=== PATIENT | male | born 1955 | race Caucasian/White ===

== ENCOUNTER 2022-05-07 21:40 | Inpatient (IN) | payer OTHER ==
[2022-05-07 22:01] VITALS: BMI 20.3
[2022-05-07] MEDS ORDERED: methylPREDNISolone NA SUCC 125 MG/2 ML VIAL IVPUSH ONE (22:19)
[2022-05-07] MEDS ORDERED: ALBUTEROL SO4 2.5/IPRATROPIUM 0.5 INH SOL 3 ML VIAL.NEB. NEB ONE (22:44)
[2022-05-07] MEDS: ALBUTEROL SO4 2.5/IPRATROPIUM 0.5 INH SOL 3 ML VIAL.NEB. NEB SCH ×3 (22:48→23:17)
[2022-05-07] MEDS ORDERED: methylPREDNISolone NA SUCC 125 MG/2 ML VIAL ONE (22:55)
[2022-05-07 23:27] LABS: BASO % 0.6 % (0-2.0); EOS % 0.1 % (0-4.5); HEMOGLOBIN 13.2 GM/dL (11.7-16.9); LYMPH % 8.5 % (8-40); MCH 28.1 pg (25.7-33.7); MEAN PLT VOLUME 7.7 fl (7.5-11.1); MONO % 10.1 % (3.8-10.2); NEUT % 80.7 % (42.8-82.8); PLATELET COUNT 316 10^3/uL (134-434); RBC 4.71 M/mm3 (4.00-5.60); RDW 19.2 % (11.9-15.9); VENOUS BASE EXCESS 5.2 mmol/L (-2-2); VENOUS PCO2 61.9 mmHg (38-52); VENOUS PH 7.343 (7.310-7.410); WHITE BLOOD COUNT 4.6 K/mm3 (4.0-10.0)
[2022-05-07 23:37] LABS: INR 1.07 (0.83-1.09); PROTHROMBIN TIME (PATIENT) 12.3 SEC (9.7-13.0)
[2022-05-07] MEDS ORDERED: ACETAMINOPHEN 1000 MG/100 ML BAG IVPB ONE (23:39)
[2022-05-07 23:40] LABS: ACTIVATED PTT 37.7 SECONDS (25.2-36.5)
[2022-05-07] MEDS ORDERED: ACETAMINOPHEN INJECTION 100 ML IVPB ONE (23:40)
[2022-05-08 00:04] LABS: ALBUMIN 3.4 g/dl (3.4-5.0); CALCIUM 8.8 mg/dL (8.5-10.1); MAGNESIUM 2.5 mg/dL (1.8-2.4)
[2022-05-08 00:07] LABS: CREATININE 0.9 mg/dL (0.55-1.3)
[2022-05-08 00:09] LABS: TOT PROT 6.8 g/dl (6.4-8.2)
[2022-05-08 00:21] LABS: N-TERMINAL BNP 323.1 pg/ml (5-125)
[2022-05-08 00:25] LABS: BLOOD UREA NITROGEN 20.5 mg/dL (7-18)
[2022-05-08 00:32] LABS: BILIRUBIN,TOTAL 0.4 mg/dL (0.2-1)
[2022-05-08] MEDS ORDERED: amLODIPine BESYLATE 5 MG TABLET (FP) PO SCH ×2 (03:49→10:00)
[2022-05-08] MEDS ORDERED: REMDESIVIR 200 MG in SODIUM CHLORIDE 250 ML IVPB ONE (03:51)
[2022-05-08] MEDS ORDERED: MELATONIN 5 MG TABLETS PO ONE (05:04)
[2022-05-08] MEDS ORDERED: MELATONIN 5 MG TABLETS ONE (05:33)
[2022-05-08 05:48] LABS: PH,URINE 6.5 (5.0-8.0); URINE APPEARANCE CLEAR; URINE BILIRUBIN NEGATIVE (NEGATIVE); URINE COLOR YELLOW; URINE GLUCOSE (UA) TRACE (NEGATIVE); URINE KETONE TRACE (NEGATIVE); URINE LEUK ESTERASE NEGATIVE (NEGATIVE); URINE NITRITE NEGATIVE (NEGATIVE); URINE PROTEIN TRACE (NEGATIVE); URINE UROBILINOGEN 0.2 mg/dL (0.2-1.0)
[2022-05-08] MEDS ORDERED: ALBUTEROL SO4 HFA INHALER IH PRN ×2 (06:22→11:41)
[2022-05-08 07:37] LABS: BASO % 0.6 % (0-2.0); HEMATOCRIT 41.9 % (35.4-49); HEMOGLOBIN 13.9 GM/dL (11.7-16.9); MCHC 33.2 g/dl (32.0-35.9); MEAN CELL VOLUME 84.3 fl (80-96); MEAN PLT VOLUME 7.9 fl (7.5-11.1); MONO % 2.8 % (3.8-10.2); NEUT % 85.6 % (42.8-82.8); PLATELET COUNT 325 10^3/uL (134-434); RBC 4.97 M/mm3 (4.00-5.60); RDW 18.8 % (11.9-15.9); WHITE BLOOD COUNT 2.8 K/mm3 (4.0-10.0)
[2022-05-08 07:56] LABS: CALCIUM 8.9 mg/dL (8.5-10.1)
[2022-05-08 07:57] LABS: ALBUMIN 3.5 g/dl (3.4-5.0); BLOOD UREA NITROGEN 15.8 mg/dL (7-18); MAGNESIUM 2.2 mg/dL (1.8-2.4)
[2022-05-08 08:00] LABS: CREATININE 0.7 mg/dL (0.55-1.3); PHOSPHOROUS 3.3 mg/dL (2.5-4.9)
[2022-05-08 08:02] LABS: BILIRUBIN,TOTAL 0.7 mg/dL (0.2-1); TOT PROT 7.1 g/dl (6.4-8.2)
[2022-05-08] MEDS ORDERED: DEXAMETHASONE 4 MG TABLET (FP) ONE (09:16)
[2022-05-08] MEDS ORDERED: ENOXAPARIN NA (PORCINE) 40 MG/0.4 ML DISP.SYRIN SQ ONE (09:16)
[2022-05-08] MEDS ORDERED: amLODIPine BESYLATE 5 MG TABLET (FP) ONE ×2 (09:16→21:01)
[2022-05-08 09:20] LABS: ERYTHROCYTE SEDIMENTATION RATE 9 mm/hr (0-20)
[2022-05-08] MEDS: DEXAMETHASONE 4 MG TABLET (FP) PO SCH (09:25)
[2022-05-08] MEDS: ENOXAPARIN NA (PORCINE) 40 MG/0.4 ML DISP.SYRIN SQ SCH (09:25)
[2022-05-08] MEDS ORDERED: methaDONE HCL 10 MG TABLET PO SCH (11:45)
[2022-05-08] MEDS ORDERED: methaDONE HCL 40 MG DISPERSABLE TABLET ONE (12:28)
[2022-05-08] MEDS ORDERED: methaDONE HCL 10 MG TABLET ONE (12:29)
[2022-05-08] MEDS: methaDONE 40 MG, methaDONE 10 MG PO SCH (12:34)
[2022-05-08] MEDS ORDERED: LISINOPRIL 20 MG TABLET ONE (12:35)
[2022-05-08] MEDS: LISINOPRIL 20 MG TABLET PO SCH (12:42)
[2022-05-08 16:38] LABS: URINE BARBITURATES NEGATIVE (NEGATIVE)
[2022-05-08 16:40] LABS: PHENCYCLIDINE,URINE NEGATIVE (NEGATIVE); URINE AMPHETAMINES NEGATIVE (NEGATIVE)
[2022-05-08 16:46] LABS: COCAINE, UR NEGATIVE (NEGATIVE)
[2022-05-08 16:59] LABS: METHADONE, UR POSITIVE (NEGATIVE); OPIATES, URI POSITIVE (NEGATIVE); URINE BENZODIAZEPINES NEGATIVE (NEGATIVE)
[2022-05-08] MEDS ORDERED: amLODIPine BESYLATE 5 MG TABLET (FP) PO ONE (18:48)
[2022-05-08] MEDS ORDERED: amLODIPine BESYLATE 10 MG TABLET (FP) PO ONE (18:48)
[2022-05-08] MEDS ORDERED: ROSUVASTATIN CA 20 MG TABLET ONE (21:01)
[2022-05-08] MEDS ORDERED: MONTELUKAST NA 10 MG TABLET ONE (21:01)
[2022-05-08] MEDS: MONTELUKAST NA 10 MG TABLET PO SCH (21:03)
[2022-05-08] MEDS ORDERED: ROSUVASTATIN CA 10 MG TABLET PO SCH (22:00)
[2022-05-08] MEDS ORDERED: MAG HYDROX/AL HYDROX/SIMETH 30 ML UNIT-DOSE CUP PO ONE (22:41)
[2022-05-08] MEDS ORDERED: MAG HYDROX/AL HYDROX/SIMETH 30 ML UNIT-DOSE CUP ONE (22:47)
[2022-05-09] MEDS ORDERED: methaDONE HCL 10 MG TABLET ONE (08:49)
[2022-05-09] MEDS ORDERED: HYDROCHLOROTHIAZIDE 25 MG TABLET (FP) ONE (08:49)
[2022-05-09] MEDS ORDERED: ASPIRIN 81 MG CHEWABLE TABLETS ONE (08:50)
[2022-05-09] MEDS ORDERED: ENOXAPARIN NA (PORCINE) 40 MG/0.4 ML DISP.SYRIN SQ ONE (08:50)
[2022-05-09] MEDS ORDERED: MULTIVITAMINS (DAILY MVI) TABLET (FP) ONE (08:50)
[2022-05-09] MEDS ORDERED: DEXAMETHASONE 4 MG TABLET (FP) ONE (08:50)
[2022-05-09] MEDS ORDERED: LISINOPRIL 20 MG TABLET ONE (08:50)
[2022-05-09] MEDS ORDERED: amLODIPine BESYLATE 10 MG TABLET (FP) ONE (08:50)
[2022-05-09] MEDS ORDERED: SERTRALINE HCL 50 MG TABLET (FP) ONE (08:50)
[2022-05-09] MEDS: DEXAMETHASONE 4 MG TABLET (FP) PO SCH (09:10)
[2022-05-09] MEDS: methaDONE 40 MG, methaDONE 10 MG PO SCH (09:10)
[2022-05-09] MEDS: ASPIRIN 81 MG CHEWABLE TABLETS PO SCH (09:10)
[2022-05-09] MEDS: amLODIPine BESYLATE 10 MG TABLET (FP) PO SCH (09:11)
[2022-05-09] MEDS: MULTIVITAMINS (DAILY MVI) TABLET (FP) PO SCH (09:11)
[2022-05-09] MEDS: LISINOPRIL 20 MG TABLET PO SCH (09:11)
[2022-05-09] MEDS: ENOXAPARIN NA (PORCINE) 40 MG/0.4 ML DISP.SYRIN SQ SCH (09:11)
[2022-05-09] MEDS: SERTRALINE HCL 50 MG TABLET (FP) PO SCH (09:11)
[2022-05-09] MEDS: HYDROCHLOROTHIAZIDE 12.5 MG CAPSULE (FP) PO SCH (09:11)
[2022-05-09] MEDS ORDERED: ALBUTEROL SO4 2.5/IPRATROPIUM 0.5 INH SOL 3 ML VIAL.NEB. NEB ONE (09:43)
[2022-05-09 18:45] LABS: BASO % 0.3 % (0-2.0); HEMATOCRIT 49.7 % (35.4-49); HEMOGLOBIN 16.4 GM/dL (11.7-16.9); LYMPH % 18.6 % (8-40); MCH 27.7 pg (25.7-33.7); MCHC 32.9 g/dl (32.0-35.9); MEAN PLT VOLUME 8.1 fl (7.5-11.1); MONO % 5.3 % (3.8-10.2); NEUT % 75.8 % (42.8-82.8); PLATELET COUNT 388 10^3/uL (134-434); RBC 5.91 M/mm3 (4.00-5.60); WHITE BLOOD COUNT 5.8 K/mm3 (4.0-10.0)
[2022-05-09 19:06] LABS: BLOOD UREA NITROGEN 39.2 mg/dL (7-18); MAGNESIUM 2.5 mg/dL (1.8-2.4)
[2022-05-09 19:09] LABS: PHOSPHOROUS 4.8 mg/dL (2.5-4.9)
[2022-05-09] MEDS: MONTELUKAST NA 10 MG TABLET PO SCH (22:22)
[2022-05-10] MEDS ORDERED: methaDONE HCL 10 MG TABLET ONE (05:54)
[2022-05-10] MEDS ORDERED: methaDONE HCL 40 MG DISPERSABLE TABLET ONE (05:54)
[2022-05-10] MEDS: methaDONE 40 MG, methaDONE 10 MG PO SCH (05:59)
[2022-05-10] MEDS: amLODIPine BESYLATE 10 MG TABLET (FP) PO SCH (09:46)
[2022-05-10] MEDS: SERTRALINE HCL 50 MG TABLET (FP) PO SCH (09:46)
[2022-05-10] MEDS: ASPIRIN 81 MG CHEWABLE TABLETS PO SCH (09:46)
[2022-05-10] MEDS: DEXAMETHASONE 4 MG TABLET (FP) PO SCH (09:46)
[2022-05-10] MEDS: MULTIVITAMINS (DAILY MVI) TABLET (FP) PO SCH (09:46)
[2022-05-10] MEDS: LISINOPRIL 20 MG TABLET PO SCH (09:46)
[2022-05-10] MEDS: HYDROCHLOROTHIAZIDE 12.5 MG CAPSULE (FP) PO SCH (09:46)
[2022-05-10] MEDS: ENOXAPARIN NA (PORCINE) 40 MG/0.4 ML DISP.SYRIN SQ SCH (10:01)
[2022-05-10 10:30] LABS: BASO % 0.6 % (0-2.0); EOS % 0.1 % (0-4.5); HEMATOCRIT 48.6 % (35.4-49); HEMOGLOBIN 16.1 GM/dL (11.7-16.9); MCH 27.9 pg (25.7-33.7); MCHC 33.2 g/dl (32.0-35.9); MEAN CELL VOLUME 84.1 fl (80-96); MONO % 11.7 % (3.8-10.2); NEUT % 64.6 % (42.8-82.8); PLATELET COUNT 359 10^3/uL (134-434); RBC 5.78 M/mm3 (4.00-5.60); RDW 19.3 % (11.9-15.9)
[2022-05-10 11:01] LABS: CALCIUM 8.5 mg/dL (8.5-10.1)
[2022-05-10 11:02] LABS: MAGNESIUM 2.7 mg/dL (1.8-2.4)
[2022-05-10 11:05] LABS: CREATININE 1.2 mg/dL (0.55-1.3); PHOSPHOROUS 4.4 mg/dL (2.5-4.9)
[2022-05-10] MEDS ORDERED: REMDESIVIR 200 MG in SODIUM CHLORIDE 250 ML IVPB ONE (14:30)
[2022-05-10] MEDS: hydrOXYzine PAMOATE 50 MG CAPSULE (FP) PO PRN (21:56)
[2022-05-10] MEDS: MONTELUKAST NA 10 MG TABLET PO SCH (21:56)
[2022-05-11] MEDS ORDERED: methaDONE HCL 40 MG DISPERSABLE TABLET ONE (05:49)
[2022-05-11] MEDS ORDERED: methaDONE HCL 10 MG TABLET ONE (05:50)
[2022-05-11] MEDS: methaDONE 40 MG, methaDONE 10 MG PO SCH (05:57)
[2022-05-11] MEDS: HYDROCHLOROTHIAZIDE 12.5 MG CAPSULE (FP) PO SCH (11:27)
[2022-05-11] MEDS: ASPIRIN 81 MG CHEWABLE TABLETS PO SCH (11:27)
[2022-05-11] MEDS: ENOXAPARIN NA (PORCINE) 40 MG/0.4 ML DISP.SYRIN SQ SCH (11:28)
[2022-05-11] MEDS: amLODIPine BESYLATE 10 MG TABLET (FP) PO SCH (11:28)
[2022-05-11] MEDS: MULTIVITAMINS (DAILY MVI) TABLET (FP) PO SCH (11:28)
[2022-05-11] MEDS: LISINOPRIL 20 MG TABLET PO SCH (11:28)
[2022-05-11] MEDS: SERTRALINE HCL 50 MG TABLET (FP) PO SCH (11:28)
[2022-05-11] MEDS: DEXAMETHASONE SOD PHOSPHATE 4 MG/1 ML VIAL IVPUSH SCH (13:03)
[2022-05-11] MEDS: REMDESIVIR 100 MG in SODIUM CHLORIDE 250 ML IVPB SCH (14:05)
[2022-05-11] MEDS: NICOTINE 14 MG/24 HOURS TOPICAL PATCH TD SCH (16:39)
[2022-05-11] MEDS: hydrOXYzine PAMOATE 50 MG CAPSULE (FP) PO PRN (22:10)
[2022-05-11] MEDS: MONTELUKAST NA 10 MG TABLET PO SCH (22:10)
[2022-05-12] MEDS ORDERED: methaDONE HCL 10 MG TABLET ONE (06:02)
[2022-05-12] MEDS ORDERED: methaDONE HCL 40 MG DISPERSABLE TABLET ONE (06:02)
[2022-05-12] MEDS: methaDONE 40 MG, methaDONE 10 MG PO SCH (06:17)
[2022-05-12] MEDS: LISINOPRIL 20 MG TABLET PO SCH (09:50)
[2022-05-12] MEDS: MULTIVITAMINS (DAILY MVI) TABLET (FP) PO SCH (09:50)
[2022-05-12] MEDS: amLODIPine BESYLATE 10 MG TABLET (FP) PO SCH (09:50)
[2022-05-12] MEDS: ASPIRIN 81 MG CHEWABLE TABLETS PO SCH (09:50)
[2022-05-12] MEDS: ENOXAPARIN NA (PORCINE) 40 MG/0.4 ML DISP.SYRIN SQ SCH (09:51)
[2022-05-12] MEDS: SERTRALINE HCL 50 MG TABLET (FP) PO SCH (09:51)
[2022-05-12] MEDS: hydrOXYzine PAMOATE 50 MG CAPSULE (FP) PO PRN (09:51)
[2022-05-12] MEDS: HYDROCHLOROTHIAZIDE 12.5 MG CAPSULE (FP) PO SCH (09:51)
[2022-05-12] MEDS: DEXAMETHASONE SOD PHOSPHATE 4 MG/1 ML VIAL IVPUSH SCH (09:51)
[2022-05-12] MEDS: NICOTINE 14 MG/24 HOURS TOPICAL PATCH TD SCH ×2 (09:52→10:25)
[2022-05-12 13:19] LABS: BASO % 0.4 % (0-2.0); EOS % 0.2 % (0-4.5); HEMATOCRIT 42.6 % (35.4-49); HEMOGLOBIN 13.9 GM/dL (11.7-16.9); LYMPH % 21.3 % (8-40); MCH 27.6 pg (25.7-33.7); MCHC 32.6 g/dl (32.0-35.9); MEAN CELL VOLUME 84.7 fl (80-96); MEAN PLT VOLUME 8.2 fl (7.5-11.1); MONO % 7.3 % (3.8-10.2); NEUT % 70.8 % (42.8-82.8); PLATELET COUNT 261 10^3/uL (134-434); RBC 5.03 M/mm3 (4.00-5.60); RDW 18.6 % (11.9-15.9); WHITE BLOOD COUNT 4.8 K/mm3 (4.0-10.0)
[2022-05-12] MEDS: REMDESIVIR 100 MG in SODIUM CHLORIDE 250 ML IVPB SCH (13:34)
[2022-05-12 13:47] LABS: CALCIUM 8.6 mg/dL (8.5-10.1)
[2022-05-12 13:48] LABS: MAGNESIUM 2.4 mg/dL (1.8-2.4)
[2022-05-12 13:51] LABS: CREATININE 0.6 mg/dL (0.55-1.3)
[2022-05-12 13:52] LABS: BILIRUBIN,TOTAL 0.3 mg/dL (0.2-1); TOT PROT 6.2 g/dl (6.4-8.2)
[2022-05-12 13:56] LABS: BLOOD UREA NITROGEN 22.8 mg/dL (7-18)
[2022-05-12] MEDS: MONTELUKAST NA 10 MG TABLET PO SCH (22:42)
[2022-05-13] MEDS ORDERED: methaDONE HCL 10 MG TABLET ONE (05:36)
[2022-05-13] MEDS ORDERED: methaDONE HCL 40 MG DISPERSABLE TABLET ONE (05:36)
[2022-05-13] MEDS: methaDONE 40 MG, methaDONE 10 MG PO SCH (05:44)
[2022-05-13 07:38] LABS: BASO % 0.2 % (0-2.0); EOS % 0.3 % (0-4.5); HEMATOCRIT 42.9 % (35.4-49); HEMOGLOBIN 14.2 GM/dL (11.7-16.9); LYMPH % 34.8 % (8-40); MCHC 33.1 g/dl (32.0-35.9); MEAN CELL VOLUME 84.5 fl (80-96); MEAN PLT VOLUME 8.4 fl (7.5-11.1); MONO % 8.3 % (3.8-10.2); NEUT % 56.4 % (42.8-82.8); PLATELET COUNT 261 10^3/uL (134-434); RBC 5.07 M/mm3 (4.00-5.60); RDW 18.6 % (11.9-15.9); WHITE BLOOD COUNT 8.4 K/mm3 (4.0-10.0)
[2022-05-13 08:44] LABS: CHLORIDE 99 mmol/L (98-107); SODIUM 137 mmol/L (136-145)
[2022-05-13] MEDS: ENOXAPARIN NA (PORCINE) 40 MG/0.4 ML DISP.SYRIN SQ SCH (09:32)
[2022-05-13] MEDS: LISINOPRIL 20 MG TABLET PO SCH (09:32)
[2022-05-13] MEDS: HYDROCHLOROTHIAZIDE 12.5 MG CAPSULE (FP) PO SCH (09:32)
[2022-05-13] MEDS: ASPIRIN 81 MG CHEWABLE TABLETS PO SCH (09:32)
[2022-05-13] MEDS: DEXAMETHASONE SOD PHOSPHATE 4 MG/1 ML VIAL IVPUSH SCH (09:32)
[2022-05-13] MEDS: SERTRALINE HCL 50 MG TABLET (FP) PO SCH (09:32)
[2022-05-13] MEDS: amLODIPine BESYLATE 10 MG TABLET (FP) PO SCH (09:32)
[2022-05-13] MEDS: MULTIVITAMINS (DAILY MVI) TABLET (FP) PO SCH (09:32)
[2022-05-13] MEDS: NICOTINE 14 MG/24 HOURS TOPICAL PATCH TD SCH (09:39)
[2022-05-13 09:49] LABS: ALBUMIN 2.9 g/dl (3.4-5.0); BLOOD UREA NITROGEN 24.1 mg/dL (7-18); CALCIUM 8.4 mg/dL (8.5-10.1); GLUCOSE,RANDOM 81 mg/dL (74-106)
[2022-05-13 09:50] LABS: CO2 32 mmol/L (21-32); MAGNESIUM 2.2 mg/dL (1.8-2.4)
[2022-05-13 09:53] LABS: BILIRUBIN,TOTAL 0.5 mg/dL (0.2-1); CREATININE 0.6 mg/dL (0.55-1.3); PHOSPHOROUS 2.3 mg/dL (2.5-4.9); SGOT/AST 17 U/L (15-37); SGPT/ALT 23 U/L (13-61)
[2022-05-13 09:54] LABS: ALK PHOS 94 U/L (45-117)
[2022-05-13 10:37] LABS: ANION GAP 6 MMOL/L (8-16)
[2022-05-13] MEDS ORDERED: POTASSIUM PHOSPHATE 30 MM in SODIUM CHLORIDE 500 ML IVPB ONE (10:51)
[2022-05-13] MEDS: REMDESIVIR 100 MG in SODIUM CHLORIDE 250 ML IVPB SCH (13:17)
[2022-05-13] MEDS: MONTELUKAST NA 10 MG TABLET PO SCH (21:43)
[2022-05-14] MEDS ORDERED: methaDONE HCL 40 MG DISPERSABLE TABLET ONE (05:45)
[2022-05-14] MEDS ORDERED: methaDONE HCL 10 MG TABLET ONE (05:45)
[2022-05-14] MEDS: methaDONE 40 MG, methaDONE 10 MG PO SCH (05:56)
[2022-05-14] MEDS ORDERED: HYDROCHLOROTHIAZIDE 25 MG TABLET (FP) PO ONE (08:30)
[2022-05-14] MEDS: ENOXAPARIN NA (PORCINE) 40 MG/0.4 ML DISP.SYRIN SQ SCH (10:07)
[2022-05-14] MEDS: LISINOPRIL 20 MG TABLET PO SCH (10:08)
[2022-05-14] MEDS: SERTRALINE HCL 50 MG TABLET (FP) PO SCH (10:08)
[2022-05-14] MEDS: MULTIVITAMINS (DAILY MVI) TABLET (FP) PO SCH (10:09)
[2022-05-14] MEDS: ASPIRIN 81 MG CHEWABLE TABLETS PO SCH (10:09)
[2022-05-14] MEDS: NICOTINE 14 MG/24 HOURS TOPICAL PATCH TD SCH (10:09)
[2022-05-14] MEDS: amLODIPine BESYLATE 10 MG TABLET (FP) PO SCH (10:09)
[2022-05-14] MEDS: DEXAMETHASONE SOD PHOSPHATE 4 MG/1 ML VIAL IVPUSH SCH (10:12)
[2022-05-14] MEDS: REMDESIVIR 100 MG in SODIUM CHLORIDE 250 ML IVPB SCH (15:51)
[2022-05-14] MEDS: MONTELUKAST NA 10 MG TABLET PO SCH (21:32)
[2022-05-15] MEDS ORDERED: methaDONE HCL 40 MG DISPERSABLE TABLET ONE (06:32)
[2022-05-15] MEDS ORDERED: methaDONE HCL 10 MG TABLET ONE (06:33)
[2022-05-15] MEDS: methaDONE 40 MG, methaDONE 10 MG PO SCH (06:41)
[2022-05-15] MEDS: ASPIRIN 81 MG CHEWABLE TABLETS PO SCH (09:18)
[2022-05-15] MEDS: MULTIVITAMINS (DAILY MVI) TABLET (FP) PO SCH (09:18)
[2022-05-15] MEDS: LISINOPRIL 20 MG TABLET PO SCH (09:18)
[2022-05-15] MEDS: amLODIPine BESYLATE 10 MG TABLET (FP) PO SCH (09:18)
[2022-05-15] MEDS: DEXAMETHASONE SOD PHOSPHATE 4 MG/1 ML VIAL IVPUSH SCH (09:18)
[2022-05-15] MEDS: SERTRALINE HCL 50 MG TABLET (FP) PO SCH (09:18)
[2022-05-15] MEDS: NICOTINE 14 MG/24 HOURS TOPICAL PATCH TD SCH (09:22)
[2022-05-15] MEDS ORDERED: HYDROCHLOROTHIAZIDE 25 MG TABLET (FP) PO SCH (10:00)
[2022-05-15 14:29] VITALS: BP 147/79; PULSE 61; TEMP 98
== END 2022-05-15 17:46 | disposition home or self-care (01) | DRG 177 ==
LOC: JER 21:40 → JERBED 22:36 → J4W 05-09 16:55
PROVIDERS: ADMIT Hospitalist
PROC: XW033E5 Introduction of Remdesivir Anti-infective into Peripheral Vein, Percutaneous Approach, New Technology Group 5 (ICD-10-PCS; principal; 2022-05-07)
DX: U07.1 COVID-19 (principal); G93.41 Metabolic encephalopathy; J45.901 Unspecified asthma with (acute) exacerbation; F11.20 Opioid dependence, uncomplicated; I16.0 Hypertensive urgency; F12.20 Cannabis dependence, uncomplicated; I10 Essential (primary) hypertension; E78.5 Hyperlipidemia, unspecified; Z91.14 Patient's other noncompliance with medication regimen; F41.8 Other specified anxiety disorders; G30.9 Alzheimer's disease, unspecified; F02.80 Dementia in other diseases classified elsewhere, unspecified severity, without behavioral disturbance, psychotic disturbance, mood disturbance, and anxiety; F17.210 Nicotine dependence, cigarettes, uncomplicated
CPT/HCPCS: 0241U-QW; 36415; 70450-TC; 71045-TC-FY; 72125-TC; 80048; 80053; 80061; 80307; 81003; 82550; 82553; 82728; 82803; 83036; 83615; 83735; 83880; 84100; 84443; 84484; 85025; 85379; 85610; 85651; 85730; 86140; 93005; 93010; 94761; 97116-GP; 97161-GP; 99285-25; C9399; C9803-CS; U0003; U0005

== ENCOUNTER 2022-09-11 12:48 | Emergency (ER) | payer OTHER ==
[2022-09-11 12:57] VITALS: BP 162/99; PULSE 80; RESP 18; TEMP 97.9; BMI 20.3
== END 2022-09-11 17:40 | disposition home or self-care (01) ==
LOC: JER 12:48
DX: S99.191A Other physeal fracture of right metatarsal, initial encounter for closed fracture (principal); W01.0XXA Fall on same level from slipping, tripping and stumbling without subsequent striking against object, initial encounter
CPT/HCPCS: 73610-TC-RT-FY; 73630-TC-RT-FY; 99283-25

== ENCOUNTER 2023-11-04 10:49 | Inpatient (IN) | payer OTHER ==
[2023-11-04 11:24] VITALS: BMI 20.3
[2023-11-04] MEDS ORDERED: IBUPROFEN 600 MG TABLET (FP) PO PRN (11:51)
[2023-11-04] MEDS ORDERED: LOPERAMIDE HCL 2 MG CAPSULE PO PRN (11:51)
[2023-11-04] MEDS ORDERED: BENZOCAINE/MENTHOL (CHLORASEPTIC ) LOZENGE MM PRN (11:51)
[2023-11-04] MEDS ORDERED: POLYETHYLENE GLYCOL (HEALTHYLAX) 3350 17 GM PACKET PO PRN (11:51)
[2023-11-04] MEDS ORDERED: IBUPROFEN 400 MG TABLET (FP) PO PRN (11:51)
[2023-11-04] MEDS ORDERED: guaiFENesin 600 MG TABLET.ER (FP) PO PRN (11:51)
[2023-11-04] MEDS ORDERED: methaDONE HCL 10 MG TABLET (FOR DETOX USE ONLY) PO ONE (11:51)
[2023-11-04] MEDS ORDERED: NALOXONE HCL 0.4 MG/ML VIAL IM PRN (11:51)
[2023-11-04] MEDS ORDERED: ONDANSETRON *ODT* 4 MG TABLET SL PRN (11:51)
[2023-11-04] MEDS ORDERED: cloNIDine HCL 0.1 MG TABLET PO PRN (11:51)
[2023-11-04] MEDS ORDERED: DICYCLOMINE HCL 10 MG CAPSULE PO PRN (11:51)
[2023-11-04] MEDS ORDERED: MAG HYDROX/AL HYDROX/SIMETH 30 ML UNIT-DOSE CUP PO PRN (11:51)
[2023-11-04] MEDS ORDERED: NALOXONE HCL (KLOXXADO) 8 MG SPRAY NS PRN (11:51)
[2023-11-04] MEDS ORDERED: ACETAMINOPHEN 325 MG TABLET (FP) PO PRN (11:51)
[2023-11-04] MEDS ORDERED: hydrOXYzine PAMOATE 25 MG CAPSULE (FP) PO PRN (11:51)
[2023-11-04] MEDS ORDERED: BENZONATATE 200 MG CAPSULE PO PRN (11:51)
[2023-11-04] MEDS ORDERED: MAGNESIUM HYDROX 2400MG/30ML ORAL SUSPENSION 30 ML CUP PO PRN (11:51)
[2023-11-04] MEDS ORDERED: NICOTINE POLACRILEX 2 MG GUM BUC PRN (11:51)
[2023-11-04] MEDS ORDERED: BISMUTH SUBSALICYLATE 262 MG/15 ML BTL PO PRN (11:51)
[2023-11-04] MEDS ORDERED: ALBUTEROL SO4 HFA INHALER IH PRN (11:54)
[2023-11-04] MEDS ORDERED: methaDONE HCL 10 MG TABLET (FOR DETOX USE ONLY) ONE (12:20)
[2023-11-04] MEDS ORDERED: PRENATAL VITAMINS W/ FOLIC ACID TABLET (FP) PO ONE (12:25)
[2023-11-04] MEDS: PRENATAL VITAMINS W/ FOLIC ACID TABLET (FP) PO SCH (12:30)
[2023-11-04 13:44] LABS: HEMATOCRIT 42.2 % (35.4-49); HEMOGLOBIN 13.4 GM/dL (11.7-16.9); MCH 24.4 pg (25.7-33.7); MCHC 31.8 g/dl (32.0-35.9); MEAN CELL VOLUME 76.7 fl (80-96); MEAN PLT VOLUME 8.2 fl (7.5-11.1); PLATELET COUNT 400 10^3/uL (134-434); RDW 21.2 % (11.9-15.9); WHITE BLOOD COUNT 5.3 K/mm3 (4.0-10.0)
[2023-11-04 13:47] LABS: CHLORIDE 106 mmol/L (98-107); POTASSIUM 4.5 mmol/L (3.5-5.1); SODIUM 141 mmol/L (136-145)
[2023-11-04 13:49] LABS: ALBUMIN 3.6 g/dl (3.4-5.0); ANION GAP 6 mmol/L (4-13); BLOOD UREA NITROGEN 15.7 mg/dL (7-18); CALCIUM 9.6 mg/dL (8.5-10.1); CO2 29 mmol/L (21-32); GLUCOSE,RANDOM 104 mg/dL (74-106)
[2023-11-04 13:52] LABS: CREATININE 0.8 mg/dL (0.55-1.3); SGOT/AST 32 U/L (15-37); SGPT/ALT 38 U/L (13-61)
[2023-11-04 13:53] LABS: BILIRUBIN,TOTAL 0.3 mg/dL (0.2-1)
[2023-11-04 13:54] LABS: TOT PROT 7.6 g/dl (6.4-8.2)
[2023-11-04 13:55] LABS: ALK PHOS 147 U/L (45-117)
[2023-11-04 14:43] LABS: HIV INTERPRETATION NEGATIVE (NEGATIVE)
[2023-11-04] MEDS: THIAMINE HCL 100 MG TABLET (FP) PO SCH (22:13)
[2023-11-04] MEDS: MONTELUKAST NA 10 MG TABLET PO SCH (22:13)
[2023-11-04] MEDS: METHOCARBAMOL 500 MG TABLET PO PRN (22:13)
[2023-11-04] MEDS: MELATONIN 5 MG TABLETS PO SCH (22:13)
[2023-11-05] MEDS: LISINOPRIL 5 MG TABLET PO SCH (10:16)
[2023-11-05] MEDS: HYDROCHLOROTHIAZIDE 25 MG TABLET (FP) PO SCH (10:16)
[2023-11-05] MEDS: PRENATAL VITAMINS W/ FOLIC ACID TABLET (FP) PO SCH (10:16)
[2023-11-05] MEDS: amLODIPine BESYLATE 10 MG TABLET (FP) PO SCH (10:16)
[2023-11-05] MEDS: ASPIRIN 81 MG CHEWABLE TABLETS PO SCH (10:16)
[2023-11-05] MEDS: METHOCARBAMOL 500 MG TABLET PO PRN (22:21)
[2023-11-05] MEDS: MELATONIN 5 MG TABLETS PO SCH (22:21)
[2023-11-05] MEDS: THIAMINE HCL 100 MG TABLET (FP) PO SCH (22:21)
[2023-11-05] MEDS: MONTELUKAST NA 10 MG TABLET PO SCH (22:21)
[2023-11-06] MEDS ORDERED: methaDONE HCL 10 MG TABLET (FOR DETOX USE ONLY) PO ONE (10:00)
[2023-11-06] MEDS: PRENATAL VITAMINS W/ FOLIC ACID TABLET (FP) PO SCH (10:21)
[2023-11-06] MEDS: ASPIRIN 81 MG CHEWABLE TABLETS PO SCH (10:23)
[2023-11-06] MEDS: LISINOPRIL 5 MG TABLET PO SCH (10:23)
[2023-11-06] MEDS: amLODIPine BESYLATE 10 MG TABLET (FP) PO SCH (10:23)
[2023-11-06] MEDS: HYDROCHLOROTHIAZIDE 25 MG TABLET (FP) PO SCH (10:23)
[2023-11-06] MEDS: PANTOPRAZOLE 40 MG TABLET PO SCH (14:38)
[2023-11-06] MEDS: METHOCARBAMOL 500 MG TABLET PO PRN (22:11)
[2023-11-06] MEDS: ATORVASTATIN CA 40 MG TABLET (FP) PO SCH (22:11)
[2023-11-06] MEDS: THIAMINE HCL 100 MG TABLET (FP) PO SCH (22:11)
[2023-11-06] MEDS: MONTELUKAST NA 10 MG TABLET PO SCH (22:11)
[2023-11-06] MEDS: MELATONIN 5 MG TABLETS PO SCH (22:11)
[2023-11-07] MEDS: METHOCARBAMOL 500 MG TABLET PO PRN ×2 (05:47→22:36)
[2023-11-07] MEDS: LISINOPRIL 5 MG TABLET PO SCH (10:04)
[2023-11-07] MEDS: HYDROCHLOROTHIAZIDE 25 MG TABLET (FP) PO SCH (10:04)
[2023-11-07] MEDS: PANTOPRAZOLE 40 MG TABLET PO SCH (10:04)
[2023-11-07] MEDS: PRENATAL VITAMINS W/ FOLIC ACID TABLET (FP) PO SCH (10:04)
[2023-11-07] MEDS: ASPIRIN 81 MG CHEWABLE TABLETS PO SCH (10:04)
[2023-11-07] MEDS: amLODIPine BESYLATE 10 MG TABLET (FP) PO SCH (10:04)
[2023-11-07] MEDS: ATORVASTATIN CA 40 MG TABLET (FP) PO SCH (22:34)
[2023-11-07] MEDS: MONTELUKAST NA 10 MG TABLET PO SCH (22:34)
[2023-11-07] MEDS: MELATONIN 5 MG TABLETS PO SCH (22:35)
[2023-11-07] MEDS: THIAMINE HCL 100 MG TABLET (FP) PO SCH (22:35)
[2023-11-08] MEDS ORDERED: MELATONIN 5 MG TABLETS PO ONE (02:48)
[2023-11-08] MEDS ORDERED: methaDONE HCL 10 MG TABLET (FOR DETOX USE ONLY) PO ONE (10:00)
[2023-11-08] MEDS: PANTOPRAZOLE 40 MG TABLET PO SCH (10:18)
[2023-11-08] MEDS: LISINOPRIL 5 MG TABLET PO SCH (10:18)
[2023-11-08] MEDS: ASPIRIN 81 MG CHEWABLE TABLETS PO SCH (10:19)
[2023-11-08] MEDS: amLODIPine BESYLATE 10 MG TABLET (FP) PO SCH (10:19)
[2023-11-08] MEDS: PRENATAL VITAMINS W/ FOLIC ACID TABLET (FP) PO SCH (10:19)
[2023-11-08] MEDS: HYDROCHLOROTHIAZIDE 25 MG TABLET (FP) PO SCH (10:19)
[2023-11-08] MEDS: METHOCARBAMOL 500 MG TABLET PO PRN ×2 (10:20→21:58)
[2023-11-08] MEDS ORDERED: MELATONIN 5 MG TABLETS PO SCH (13:52)
[2023-11-08] MEDS: MONTELUKAST NA 10 MG TABLET PO SCH (21:46)
[2023-11-08] MEDS: ATORVASTATIN CA 40 MG TABLET (FP) PO SCH (21:46)
[2023-11-08] MEDS: THIAMINE HCL 100 MG TABLET (FP) PO SCH (21:47)
[2023-11-09] MEDS: ASPIRIN 81 MG CHEWABLE TABLETS PO SCH (10:03)
[2023-11-09] MEDS: amLODIPine BESYLATE 10 MG TABLET (FP) PO SCH (10:03)
[2023-11-09] MEDS: PANTOPRAZOLE 40 MG TABLET PO SCH (10:03)
[2023-11-09] MEDS: HYDROCHLOROTHIAZIDE 25 MG TABLET (FP) PO SCH (10:03)
[2023-11-09] MEDS: PRENATAL VITAMINS W/ FOLIC ACID TABLET (FP) PO SCH (10:03)
[2023-11-09] MEDS: LISINOPRIL 5 MG TABLET PO SCH (10:03)
[2023-11-09 10:40] VITALS: BP 111/60; PULSE 69; RESP 18; TEMP 97.8
== END 2023-11-09 14:00 | disposition home or self-care (01) | DRG 897 ==
LOC: YASAS 10:49 → Y3N 11:48
PROVIDERS: ADMIT Allergy & Immunology; ATTEND Surgery
PROC: HZ2ZZZZ Detoxification Services for Substance Abuse Treatment (ICD-10-PCS; principal; 2023-11-04)
DX: F11.23 Opioid dependence with withdrawal (principal); F14.10 Cocaine abuse, uncomplicated; F12.20 Cannabis dependence, uncomplicated; F17.210 Nicotine dependence, cigarettes, uncomplicated; F41.0 Panic disorder [episodic paroxysmal anxiety]; G30.9 Alzheimer's disease, unspecified; F02.80 Dementia in other diseases classified elsewhere, unspecified severity, without behavioral disturbance, psychotic disturbance, mood disturbance, and anxiety; G47.00 Insomnia, unspecified; J44.9 Chronic obstructive pulmonary disease, unspecified; E78.5 Hyperlipidemia, unspecified; K21.9 Gastro-esophageal reflux disease without esophagitis; R94.31 Abnormal electrocardiogram [ECG] [EKG]; E78.00 Pure hypercholesterolemia, unspecified; I10 Essential (primary) hypertension; Z86.11 Personal history of tuberculosis; Z87.09 Personal history of other diseases of the respiratory system
CPT/HCPCS: 36415; 71046-TC-FY; 80053; 80307; 85027; 86780; 87389; 87635; 87811